=== PATIENT | female | born 1970 ===

== ENCOUNTER 2017-06-28 07:38 | Observation (INO) ==
[2017-06-21 11:37] LABS: Basophils % 0.6 % (0.0-0.8); Eosinophils # 0.1 10*3/uL (0.0-0.87); Eosinophils % 2.2 % (0.00-10.9); Hematocrit 42.6 VOL% (35.7-47.0); Hemoglobin 14.4 GM/DL (12.0-16.0); Immature Granulocytes % 0.3 %; Immature Granulocytes Absolute 0.02 #; Lymphocytes % 31.1 % (21.3-54.2); Mean Corpuscular HGB Conc 33.8 GM/DL (32-36); Mean Corpuscular Hemoglobin 31 PG (27-34); Mean Corpuscular Volume 92.4 FL (87-102); Mean Platelet Volume 9.2 FL (9.6-12.0); Monocytes # 0.4 10*3/uL (0.11-0.8); Monocytes % 6.3 % (1.7-12.7); Neutrophils # 3.8 10*3/uL (1.4-7.4); Neutrophils % 59.5 % (38.7-73.9); Platelet Count 294 T/CUMM (130-400); Red Blood Count 4.61 MC/CUMM (3.8-5.5); Red Cell Distribution Width 12.8 % (9.3-17.3); White Blood Count 6.5 T/CUMM (4-12)
[2017-06-21 11:53] LABS: Apearance,Urine CLEAR (Clear); Bilirubin,Urine Negative (Negative); Blood, Urine Negative (Negative); Glucose,Urine (UA) Negative (Negative); Ketones,Urine Negative (Negative); Mucus,Urine Few /LPF (Occasional); Nitrite,Urine Negative (Negative); PT Patient Result 10.1 SECS; Protein,Urine Negative; RBC,Urine 2 /HPF (0-4); Squamous Epithelial Cell,Urine Occasional /HPF (0-10); Urine Color Yellow (Yellow); WBC,Urine 5 /HPF (0-6)
[2017-06-21 11:56] LABS: Bilirubin,Total 0.7 MG/DL (0.2-1.0); Calcium 8.6 MG/DL (8.5-10.1); Potassium 4.1 MMOL/L (3.5-5.1); Total Protein 7.4 G/DL (6.4-8.3)
[~2017-06-28 07:38] MED LIST: LACTATED RINGERS 1,000 ML IV SCH; VANCOMYCIN 1,000 MG VIAL ONE; VANCOMYCIN INJ 1,000 MG in SODIUM CHLORIDE 0.9% 250 ML IV ONE; ceFAZolin 1,000 MG VIAL ONE; ceFAZolin 1,000 MG in SYRINGE 1 EACH IV ONE
[2017-06-28] MEDS ORDERED: FAMOTIDINE 20 MG TABLET PO ONE (08:08)
[2017-06-28] MEDS ORDERED: DIAZEPAM 5 MG TABLET PO ONE (08:08)
[2017-06-28] MEDS ORDERED: DIAZEPAM 5 MG TABLET ONE (08:35)
[2017-06-28] MEDS ORDERED: FAMOTIDINE 20 MG TABLET ONE (08:35)
[2017-06-28] MEDS ORDERED: TRANEXAMIC ACID 1,000 MG/10 ML VIAL IV ONE (11:32)
[2017-06-28] MEDS ORDERED: BACITRACIN OINT 0.9 GM PACK TOP ONE (12:41)
[2017-06-28] MEDS ORDERED: PROPOFOL 200 MG/20 ML VIAL IV ONE (12:56)
[2017-06-28] MEDS ORDERED: fentaNYL 100 MCG/2 ML VIAL ONE (12:57)
[2017-06-28] MEDS ORDERED: BUPIVACAINE SPINAL 0.75% 2 ML AMP SPINAL ONE (12:57)
[2017-06-28] MEDS ORDERED: ONDANSETRON 4 MG/2 ML VIAL ONE (12:57)
[2017-06-28] MEDS ORDERED: KETAMINE 500 MG/10 ML VIAL ONE (12:57)
[2017-06-28] MEDS ORDERED: MIDAZOLAM 2 MG/2 ML VIAL ONE (12:57)
[2017-06-28] MEDS ORDERED: SODIUM CHLORIDE 0.9% 250 ML IV ONE (12:58)
[2017-06-28] MEDS ORDERED: LACTATED RINGERS 1,000 ML IV ONE (12:58)
[2017-06-28] MEDS ORDERED: SODIUM CHLORIDE 0.9% 1,000 ML IV ONE (12:58)
[2017-06-28] MEDS ORDERED: ACETAMINOPHEN 1,000 MG/100 ML VIAL IV ONE (12:58)
[2017-06-28] MEDS ORDERED: MORPHINE 2 MG/1 ML SYRINGE IV PRN ×2 (13:25)
[2017-06-28] MEDS ORDERED: ONDANSETRON 4 MG/2 ML VIAL IV PRN (13:25)
[2017-06-28] MEDS ORDERED: ZALEPLON 5 MG CAPSULE PO PRN (13:25)
[2017-06-28] MEDS ORDERED: oxyCODONE IR 5 MG TABLET PO PRN ×2 (13:25)
[2017-06-28] MEDS ORDERED: MAGNESIUM HYDROXIDE SUSP 30 ML UDCUP PO PRN (13:25)
[2017-06-28] MEDS ORDERED: diphenhydrAMINE CAP 25 MG CAPSULE PO PRN (13:25)
[2017-06-28] MEDS ORDERED: ROPIVACAINE 0.5% 30 ML VIAL ONE (13:35)
[2017-06-28] MEDS ORDERED: KETOROLAC 30 MG/1 ML VIAL ONE (14:03)
[2017-06-28] MEDS: KETOROLAC 30 MG/1 ML VIAL IV SCH ×2 (14:04→20:31)
[2017-06-28] MEDS: ACETAMINOPHEN 500 MG TABLET PO SCH (18:05)
[2017-06-28] MEDS: ceFAZolin 2,000 MG in PREMIX 1 EACH IV SCH (18:06)
[2017-06-28] MEDS: DOCUSATE SODIUM 100 MG CAPSULE PO SCH (20:31)
[2017-06-28] MEDS: LACTATED RINGERS 1,000 ML IV SCH (22:49)
[2017-06-29] MEDS: ACETAMINOPHEN 500 MG TABLET PO SCH ×3 (00:25→12:00)
[2017-06-29] MEDS: KETOROLAC 30 MG/1 ML VIAL IV SCH ×2 (00:38→08:20)
[2017-06-29] MEDS: ceFAZolin 2,000 MG in PREMIX 1 EACH IV SCH (01:14)
[2017-06-29] MEDS: LACTATED RINGERS 1,000 ML IV SCH (01:29)
[2017-06-29 06:31] LABS: Basophils % 0.2 % (0.0-0.8); Hematocrit 37.6 VOL% (35.7-47.0); Hemoglobin 13.2 GM/DL (12.0-16.0); Immature Granulocytes % 0.4 %; Immature Granulocytes Absolute 0.03 #; Lymphocytes % 12.2 % (21.3-54.2); Mean Corpuscular HGB Conc 35.1 GM/DL (32-36); Mean Corpuscular Hemoglobin 31 PG (27-34); Mean Corpuscular Volume 89.1 FL (87-102); Mean Platelet Volume 9.2 FL (9.6-12.0); Monocytes # 0.7 10*3/uL (0.11-0.8); Monocytes % 8.4 % (1.7-12.7); Neutrophils # 6.5 10*3/uL (1.4-7.4); Neutrophils % 78.8 % (38.7-73.9); Platelet Count 266 T/CUMM (130-400); Red Blood Count 4.22 MC/CUMM (3.8-5.5); Red Cell Distribution Width 12.6 % (9.3-17.3); White Blood Count 8.3 T/CUMM (4-12)
[2017-06-29 06:57] LABS: Calcium 8.6 MG/DL (8.5-10.1); Osmolality,Calculated 273.7 MOS/KG (273-304); Potassium 3.5 MMOL/L (3.5-5.1)
[2017-06-29] MEDS: CHOLECALCIFEROL 1,000 UNIT TABLET PO SCH (08:20)
[2017-06-29] MEDS: DOCUSATE SODIUM 100 MG CAPSULE PO SCH ×2 (08:20→20:04)
[2017-06-29] MEDS: MULTIVITAMIN (CENTRUM) TABLET PO SCH (08:20)
[2017-06-29] MEDS: FONDAPARINUX 2.5 MG/0.5 ML SYRINGE SUBCUT SCH (08:20)
[2017-06-29] MEDS ORDERED: ACETAMINOPHEN 325 MG TABLET PO PRN (13:27)
[2017-06-29] MEDS: CELECOXIB 200 MG CAPSULE PO SCH (20:04)
[2017-06-30 06:05] LABS: Basophils % 0.3 % (0.0-0.8); Eosinophils # 0.1 10*3/uL (0.0-0.87); Eosinophils % 1.8 % (0.00-10.9); Hematocrit 35.6 VOL% (35.7-47.0); Hemoglobin 12.1 GM/DL (12.0-16.0); Immature Granulocytes % 0.4 %; Immature Granulocytes Absolute 0.03 #; Lymphocytes # 1.8 10*3/uL (1.4-4.0); Lymphocytes % 26.9 % (21.3-54.2); Mean Corpuscular Hemoglobin 31 PG (27-34); Mean Corpuscular Volume 91.3 FL (87-102); Mean Platelet Volume 9.2 FL (9.6-12.0); Monocytes # 0.5 10*3/uL (0.11-0.8); Monocytes % 7.2 % (1.7-12.7); Neutrophils # 4.3 10*3/uL (1.4-7.4); Neutrophils % 63.4 % (38.7-73.9); Platelet Count 230 T/CUMM (130-400); White Blood Count 6.8 T/CUMM (4-12)
[2017-06-30] MEDS: FONDAPARINUX 2.5 MG/0.5 ML SYRINGE SUBCUT SCH (08:09)
[2017-06-30] MEDS: CELECOXIB 200 MG CAPSULE PO SCH (08:09)
[2017-06-30] MEDS: MULTIVITAMIN (CENTRUM) TABLET PO SCH (08:09)
[2017-06-30] MEDS: CHOLECALCIFEROL 1,000 UNIT TABLET PO SCH (08:09)
[2017-06-30] MEDS: DOCUSATE SODIUM 100 MG CAPSULE PO SCH (08:09)
[2017-06-30] MEDS ORDERED: MAGNESIUM GLUCONATE 500 MG TABLET PO SCH (09:00)
[2017-06-30 11:39] VITALS: BP 147/89
== END 2017-06-30 16:26 | disposition home health service (06) ==
LOC: N.OR 07:38 → N.SDSINP 07:39 → N.3E 13:26 → INTOOBSV 13:26 → N.3E 14:36 → EDSTATUS 15:00
PROVIDERS: ADMIT Orthopaedic Surgery; ATTEND Orthopaedic Surgery